=== PATIENT | female | born 1945 | race Caucasian/White ===

== ENCOUNTER 2016-10-05 08:30 | Inpatient (IN) | payer MEDICARE ==
--- NOTE | ~2016-10-05 | DS ---
Discharge Summary [facility] [address] [place]. [address] NAME: RICH STALLINGS : 43 STATUS : DIS IN PAT#: [id number] AGE: 71 ADM/REG DATE : 10/05/16 MR#: [id number] REPORT SERV DATE: 10/10/16 DICTATED BY: MIKAEL LUONG DATE: 10/09/16 REPORT STATUS : Draft TRANSCRIBED BY: MODL DATE: 10/09/16 ADMISSION DATE: 10/05/2016 DISCHARGE DATE: 10/09/2016 DISCHARGE DIAGNOSES: 1. Spontaneous bacterial peritonitis with strep bacteremia. 2. Acute kidney injury, present on admission, resolved. 3. Poorly controlled insulin-dependent diabetes type 2 with morning hypoglycemic episodes. 4. Cirrhosis with ascites and esophageal varices. 5. Hypothyroidism. CONSULTS: None. PROCEDURES: A diagnostic paracentesis, which she was essentially negative. Peritoneal fluid culture was negative as well. The patient did have clinical and ascitic fluid criteria meeting spontaneous bacterial peritonitis. HOSPITAL COURSE: This is a 71-year-old lady with history of cirrhosis, ascites, and esophageal varices, who presented to the hospital with acute abdominal pain and sepsis. For details, please refer to H and P by Dr. Blanc dated 10/05/2016. In summary, the patient had a diagnostic paracentesis done with the results being consistent with a spontaneous bacterial peritonitis, although eventually the fluid culture was negative. The patient by the second day was found to have a strep bacteremia 2/2. Unfortunately, the patient was immediately started on Rocephin, and she responded to IV Rocephin therapy really well. By the second day, the patient showed much improvement of her symptoms as well as resolution of her leukocytosis. Given the strep bacteremia and spontaneous bacterial peritonitis, the patient was maintained on IV Rocephin for five days prior to being discharged on p.o. Levaquin. The patient did have episodes of mild hypoglycemia throughout the hospital stay, especially in the mornings, however, other than that, the patient has remained stable with no additional complications. The acute kidney injury had resolved with gentle IV fluid administration. After 5 days of IV antibiotics, the patient is now being discharged home with p.o. Levaquin to finish at least a 14-day course altogether. The patient did wish to get a second opinion from a special investigator for better management of her ascites as well as being considered for transplantation in the future. Referral was made to Dr. Whitten for patient to follow up as an outpatient, but I do not see an acute reason for a Hepatology consultation here in the hospital. The patient's ascites has been stable as it has been for the past two years. DISCHARGE MEDICATIONS: 1. Levaquin for 9 additional days. 2. The patient's Lasix was increased from 40 mg p.o. daily to 40 mg p.o. b.i.d., otherwise no changes. I noted that the patient was not able to take Aldactone along with the Lasix. DISPOSITION: Home. Discharge Summary [address] [place]. [address] NAME: RICH STALLINGS : 43 STATUS : DIS IN PAT#: [id number] AGE: 71 ADM/REG DATE : 10/05/16 MR#: [id number] REPORT SERV DATE: 10/10/16 DICTATED BY: MIKAEL LUONG DATE: 10/09/16 REPORT STATUS : Draft TRANSCRIBED BY: DESTINY DATE: 10/09/16 FOLLOWUP: 1. Please follow up with PCP in the next one to two weeks. 2. Please follow up with Dr. Whitten in the next two to four weeks. A total of 35 minutes spent in coordinating this patient's discharge today. RASHAAD/DESTINY Mikael Luong MD / [id number] CC: Mikael Luong MD
--- NOTE | ~2016-10-05 | HP ---
History And Physical [place] [place] [id number] [place]. [address] NAME: RICH STALLINGS : 43 STATUS : ADM Jorge PAT#: [id number] AGE: 71 ADM/REG DATE : 10/05/16 MR#: [id number] REPORT SERV DATE: 10/05/16 DICTATED BY: PREET MACDONALD DATE: 10/05/16 REPORT STATUS : Draft TRANSCRIBED BY: MODL DATE: 10/05/16 DATE OF ADMISSION: 10/05/2016 CHIEF COMPLAINT: Abdominal pain. HISTORY OF PRESENT ILLNESS: The patient is a very unfortunate 71-year-old white female who suffers from cirrhosis of the liver, likely secondary to nonalcoholic steatohepatitis. I have seen her in the past. She has complications related to her cirrhosis such as pancytopenia, esophageal varices, ascites. She had varices banded back on, she states, last April as more of a prophylactic measure. She has had several banding procedures done. She states she was in her usual state of health until about three weeks ago when she developed diffuse abdominal pain. She states it hurts most of the time. She has diminished appetite, has not been drinking or eating, has not had any documented fevers but does feel cold. She has not had any chills. She presented to an outside hospital ER but was treated for a cough. She states her cough is not significant. She has not had any sputum. She is not short of breath. It hurts when she coughs in her belly but most of her complaints revolve around her abdomen. She has never had a paracentesis before. She does not require removal of ascites on a regular basis. She is no longer on transplant list. She denies any blood in her stool. She does have some bright red blood on the toilet paper but her anus area is very irritated from wiping and she states she has had some recent diarrhea. She has not vomited, has not had any recent hematemesis, has not noticed any change in her stool color. The abdominal pain she has is pretty significant to the point where she has been unable to perform her activities of daily life. She is currently living with her daughter. PAST MEDICAL HISTORY: 1. Cirrhosis. 2. Nonalcoholic steatohepatitis. 3. Pancytopenia. 4. Ascites. 5. Esophageal varices. 6. Hypoalbuminemia. 7. Diabetes mellitus. 8. Hypothyroidism. 9. Chronic kidney disease. SOCIAL HISTORY: She quit smoking 30+ years ago. Does not use alcohol. She works in the cleaning business. She is still gainfully employed. ALLERGIES: HYDROCODONE AND DOXYCYCLINE. FAMILY HISTORY: Her father had CAD at 73. Her mother at 89 from a stroke. She has a brother who of cirrhosis and her sister who had stomach cancer. SURGICAL HISTORY: She has had a cholecystectomy and a . HOME MEDICATIONS: Reviewed and attached. History And Physical [address] [address] NAME: RICH STALLINGS : 43 STATUS : ADM Jorge PAT#: [id number] AGE: 71 ADM/REG DATE : 10/05/16 MR#: [id number] REPORT SERV DATE: 10/05/16 DICTATED BY: PREET MACDONALD DATE: 10/05/16 REPORT STATUS : Draft TRANSCRIBED BY: DESTINY DATE: 10/05/16 REVIEW OF SYSTEMS: Full 10-point review of systems obtained. Pertinent positives already mentioned in the HPI. PHYSICAL EXAMINATION: CURRENT VITAL SIGNS: BP 179/77, temperature 98.2, pulse 100, sats 97%. Currently, her blood pressure is 155/74. Her pulse is in the low 100s currently. GENERAL: Pale-appearing white female. HEENT: Normocephalic, atraumatic. Throat is clear. NECK: Supple. HEART: Regular rate and rhythm. LUNGS: Grossly clear. ABDOMEN: Soft and mildly distended. Her bowel sounds are diminished. She has tenderness in all 4 quadrants but no rebound or guarding and no peritoneal signs. EXTREMITIES: Warm and dry. She has no significant peripheral edema. She has 2+ pulses at the feet. SKIN: Intact. LABORATORY AND X-RAY: Sodium 132, potassium 3.6, chloride 95, CO2 of 27. BUN and creatinine 34 and 1.63. Glucose is 445, albumin is 2.6, alk phos is 151, lipase is 59, ALT is 16, AST is 11. White count is 14.7, H and H are 12 and 35, platelet count is 69. Coags are pending. Urinalysis shows no whites. Chest x-ray is clear. CT of the abdomen and pelvis show thickened appearing loops of proximal and mid jejunum which may be nonspecific enteritis or hypoproteinemia. No bowel obstruction is noted. She had moderate to large volume ascites throughout the abdomen and pelvis. She had a cirrhotic liver and splenomegaly compatible with portal hypertension. She has an umbilical hernia. Cholecystectomy is noted and she has atherosclerotic calcification of the coronaries and a right renal cyst. ASSESSMENT/PLAN: 1. Abdominal pain. Certainly, first and foremost is to rule out spontaneous bacterial peritonitis given that she has cirrhosis and ongoing ascites. Certainly history sounds somewhat consistent with this. Would recommend that she undergo ultrasound-guided paracentesis with cell count culture, protein, albumin, etc. We will further evaluate her fluid studies and determine if she truly has SBP. In the meantime, we will cover with cefotaxime 2 g IV q.8 hours. Since she does have significant ascites and there is a chance of SBP and renal functions recently worsened, would also recommend giving her albumin today and on day 3, this was reviewed in the literature. We will go ahead and write for that. We will follow her studies, cover with antibiotics overnight. Certainly, did consider infectious origin such as C. diff since she has some diarrhea, so I will send off for C. diff of her stool. Her thickened loops of bowel looked like they were from hypoalbuminemia on her CT. We will pursue this further if she does not improve with the above measures. 2. Acute kidney injury. Her creatinine has doubled since I last saw her in 02/2015. I am going to give her some albumin and fluids, hold her Lasix overnight. She is going to get a paracentesis. We will need to watch her kidney function closely. Hopefully, she is not developing some type of hepatorenal syndrome. Urine studies look clean. She History And Physical [address] [address] NAME: RICH STALLINGS : 43 STATUS : ADM Jorge PAT#: [id number] AGE: 71 ADM/REG DATE : 10/05/16 MR#: [id number] REPORT SERV DATE: 10/05/16 DICTATED BY: PREET MACDONALD DATE: 10/05/16 REPORT STATUS : Draft TRANSCRIBED BY: MODL DATE: 10/05/16 may also have a component of volume depletion secondary to the fact that she has not been eating or drinking. She has not been taking her insulin and her glucose is 445. 3. Poorly-controlled diabetes mellitus, glucose of 445. We would recommend giving her 20 of Lantus now, 8 units NovoLog and level 2 sliding scale along with continued Levemir. We will see how her sugar does and go from there. 4. History of hypothyroidism. Continue Synthroid. 5. History of esophageal varices with history of banding procedure done. No active bleeding today. 6. Raw appearance to the skin around the rectum. We will recommend local care by the nurses. 7. Deep vein thrombosis prophylaxis. We will hold off given her history of bleeding in the past and her coags are pending. 8. Disposition. Pending above aforementioned plan and workup. 9. Long-term prognosis discussed with patient whether or not she wants to visit considering transplantation. 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 NICO/DESTINY Preet Macdonald M.D. / [id number]
[~2016-10-05 08:30] MED LIST: CYANO1000T PO; DRISDOL50000 UNT PO; INNOPRAN XL80 MG PO; L40 PO; LANTUS SC; LEVOTHYROXIN175 MCG PO; SLOW FE160 MG PO; TONIC WATER PO; URSO FORTE500 MG PO
[2016-10-05 08:49] LABS: BASOPHILS 0.1 %; BASOPHILS ABSOLUTE 0.01 10/3/uL (0.0-0.16); EOSINOPHILS 0.1 %; EOSINOPHILS ABSOLUTE 0.01 10/3/uL (0.0-0.53); HEMATOCRIT 35.5 % (36.0-48.0); HEMOGLOBIN 12.2 g/dL (12.0-16.0); IMMATURE GRANULOCYTES 0.5 %; LYMPHOCYTES 2.6 %; LYMPHOCYTES ABSOLUTE 0.38 10/3/uL (0.67-4.30); MEAN CORPUS HGB CONC 34.4 g/dL (32.0-36.0); MEAN CORPUSCULAR HEMOGLOB 31.4 pg (26.0-34.0); MEAN CORPUSCULAR VOLUME 91.5 fL (80-100); MEAN PLATELET VOLUME 10.7 fL (9.2-13.0); MONOCYTES 3.8 %; MONOCYTES ABSOLUTE 0.56 10/3/uL (0.21-1.20); NEUTROPHILS 92.9 %; NEUTROPHILS ABSOLUTE 13.61 10/3/uL (2.02-8.40); PLATELET COUNT 69 10/3/uL (150-400); RBC DISTRIBUTION WIDTH 13.3 % (12.0-16.0); RED CELL COUNT 3.88 10/6/uL (4.0-5.6); WHITE BLOOD CELLS 14.7 10/3/uL (4.5-10.5)
[2016-10-05 08:50] LABS: IMMATURE GRANULOCYTES ABSOLUTE 0.08 10/3/uL (0.0-0.11); MANUAL DIFF NO %
[2016-10-05 08:59] LABS: ASCORBIC ACID (UR NOT ORDER) NEG (NEG); BILIRUBIN, URINE NEGATIVE (NEG); ER URINALYSIS TAT 0 Hrs 16 Mins; KETONE, URINE TRACE MG/DL (NEG); LEUKOCYTE ESTERASE(NOT OR NEG (NEG); NITRITE (URINE) NEG (NEG); WBC (NOT ORDERED) (RFLEX) 3 (0-5)
[2016-10-05 09:08] LABS: A/G RATIO 0.5 (0.7-1.9); ALBUMIN 2.6 G/DL (3.5-5.0); ALKALINE PHOSPHATASE 151 U/L (45-117); BUN (BLOOD UREA NITROGEN) 34 MG/DL (6-23); CALCIUM, SERUM 8.7 MG/DL (8.5-10.4); CHLORIDE, SERUM 95 MMOL/L (96-112); CO2 (CARBON DIOXIDE) 27 MMOL/L (24-34); CREATININE 1.63 MG/DL (0.55-1.02); DIRECT BILIRUBIN 0.4 MG/DL (0.0-0.4); GFR AFRICAN AMERICAN 36 ML/MIN (>=60); GFR NON AFRICAN AMERICAN 31 ML/MIN (>=60); GLOBULIN 5.3 G/DL (2.5-4.1); GLUCOSE, SERUM 445 MG/DL (60-99); INDIRECT BILIRUBIN(NOT ORDER) 0.7 MG/DL (0.1-0.9); POTASSIUM, SERUM 3.6 MMOL/L (3.5-5.3); SGOT(AST) 11 U/L (5-40); SGPT(ALT) 16 U/L (5-65); SODIUM, SERUM 132 MMOL/L (135-148); TOTAL BILIRUBIN 1.1 MG/DL (0-1.2); TOTAL PROTEIN 7.9 G/DL (6.0-8.5)
[2016-10-05 09:25] LABS: BAND NEUTROPHILS 11 %; ER DIFF TAT 0 Hrs 42 Mins; LYMPHOCYTES 3 %; LYMPHOCYTES ABSOLUTE (CALC) 0.44 10/3/uL (0.67-4.30); MONOCYTES 6 %; MONOCYTES ABSOLUTE (CALC) 0.88 10/3/uL (0.21-1.20); NEUTROPHILS ABSOLUTE (CALC) 13.38 10/3/uL (2.02-8.40); PLATELET ESTIMATE DEC (ADEQUATE); RBC MORPHOLOGY NORM (NORMAL); SEGMENTED NEUTROPHIL (0) 80 %; TOTAL NUCLEATED CELLS 100
[2016-10-05] MEDS ORDERED: LEVOTHYROXIN175 MCG PO (10:27)
[2016-10-05] MEDS ORDERED: ACT300 PO (10:27)
[2016-10-05] MEDS ORDERED: ZYRTEC ALLGY10 MG PO (10:27)
[2016-10-05] MEDS ORDERED: INDE80LA PO (10:27)
[2016-10-05] MEDS ORDERED: ZANTAC150 MG PO (10:28)
[2016-10-05] MEDS ORDERED: L40 PO (10:28)
[2016-10-05] MEDS ORDERED: PRILOSEC40 MG PO (10:28)
[2016-10-05] MEDS ORDERED: SLOW-FE PO (10:30)
[2016-10-05] MEDS ORDERED: VITAMIN B-122500 MCG SL (10:31)
[2016-10-05] MEDS ORDERED: VITD PO (10:31)
[2016-10-05] MEDS ORDERED: FLEX PO (10:32)
[2016-10-05] MEDS ORDERED: TESS PO (10:32)
[2016-10-05] MEDS ORDERED: LANTUS SC (10:38)
[2016-10-05 11:46] LABS: INTERNATIONAL NORMAL RATI 1.5 UNITS (-); PROTIME (NOT ORD) 17.7 SEC (12.0-14.5)
[2016-10-05 11:47] LABS: PARTIAL THROMBO TIME 27.1 SEC (22.5-37.2)
[2016-10-05 11:50] LABS: LACTATE 1.9 MMOL/L (0.3-2.4)
[2016-10-05 16:43] LABS: BF ALBUMIN 0.7 G/DL; GLUCOSE BODY FL (NOT ORD) 424 MG/DL; LDH BODY FLUID (NOT ORD) 46 U/L; PROTEIN BODY FLUID 1.9 G/DL
[2016-10-05 16:57] LABS: BF TOTAL CELL CT (NOT ORD 811 /MM3; BODY FLUID RBC (NOT ORD) 3802 /MM3
[2016-10-05 19:38] LABS: BD FL LYMPH (NOT ORD) 14 %; BF BASO (NOT OF) 0 %; BF LARGE MONONUCLEAR 34 %; BODY FLUID EOS (NOT ORD) 0 %; BODY FLUID SEG (NOT ORD) 52 %
[2016-10-05 19:39] LABS: BD FL SOURCE (NOT ORD) PARACENTESIS
[2016-10-05 20:20] LABS: BD FL SOURCE (NOT ORD) PARACENTESIS
[2016-10-06 05:54] LABS: BASOPHILS 0 %; EOSINOPHILS 2.8 %; EOSINOPHILS ABSOLUTE 0.17 10/3/uL (0.0-0.53); IMMATURE GRANULOCYTES 0.2 %; IMMATURE GRANULOCYTES ABSOLUTE 0.01 10/3/uL (0.0-0.11); LYMPHOCYTES ABSOLUTE 0.61 10/3/uL (0.67-4.30); MEAN CORPUS HGB CONC 33.6 g/dL (32.0-36.0); MEAN CORPUSCULAR HEMOGLOB 30.7 pg (26.0-34.0); MEAN CORPUSCULAR VOLUME 91.6 fL (80-100); MEAN PLATELET VOLUME 11.2 fL (9.2-13.0); MONOCYTES 5.4 %; MONOCYTES ABSOLUTE 0.33 10/3/uL (0.21-1.20); NEUTROPHILS 81.6 %; NEUTROPHILS ABSOLUTE 4.99 10/3/uL (2.02-8.40); PLATELET COUNT 57 10/3/uL (150-400); RBC DISTRIBUTION WIDTH 13.5 % (12.0-16.0)
[2016-10-06 06:02] LABS: INTERNATIONAL NORMAL RATI 1.6 UNITS (-); PARTIAL THROMBO TIME 33.2 SEC (22.5-37.2); PROTIME (NOT ORD) 18.8 SEC (12.0-14.5)
[2016-10-06 06:03] LABS: WHITE BLOOD CELLS 6.1 10/3/uL (4.5-10.5)
[2016-10-06 06:04] LABS: HEMATOCRIT 27.1 % (36.0-48.0); HEMOGLOBIN 9.1 g/dL (12.0-16.0); MANUAL DIFF NO %; RED CELL COUNT 2.96 10/6/uL (4.0-5.6)
[2016-10-06 06:13] LABS: CALCIUM, SERUM 8.2 MG/DL (8.5-10.4); CHLORIDE, SERUM 102 MMOL/L (96-112); CO2 (CARBON DIOXIDE) 28 MMOL/L (24-34); CREATININE 1.35 MG/DL (0.55-1.02); GFR AFRICAN AMERICAN 45 ML/MIN (>=60); GFR NON AFRICAN AMERICAN 39 ML/MIN (>=60); POTASSIUM, SERUM 3.1 MMOL/L (3.5-5.3); SGOT(AST) 4 U/L (5-40); SGPT(ALT) 13 U/L (5-65); SODIUM, SERUM 138 MMOL/L (135-148); TOTAL PROTEIN 6.7 G/DL (6.0-8.5)
[2016-10-06 06:14] LABS: ALBUMIN 3.3 G/DL (3.5-5.0); ALKALINE PHOSPHATASE 95 U/L (45-117); BUN (BLOOD UREA NITROGEN) 39 MG/DL (6-23); GLOBULIN 3.4 G/DL (2.5-4.1); GLUCOSE, SERUM 193 MG/DL (60-99); TOTAL BILIRUBIN 0.6 MG/DL (0-1.2)
[2016-10-06 06:49] LABS: PLATELET ESTIMATE DEC (ADEQUATE)
[2016-10-06 06:50] LABS: POLYCHROMASIA 1+ (2-5/OIF) (0-1/OIF)
[2016-10-07 06:52] LABS: BASOPHILS 0 %; EOSINOPHILS 1.7 %; IMMATURE GRANULOCYTES 0.5 %; IMMATURE GRANULOCYTES ABSOLUTE 0.03 10/3/uL (0.0-0.11); LYMPHOCYTES 8.6 %; LYMPHOCYTES ABSOLUTE 0.51 10/3/uL (0.67-4.30); MEAN CORPUS HGB CONC 34.2 g/dL (32.0-36.0); MEAN CORPUSCULAR HEMOGLOB 31.2 pg (26.0-34.0); MEAN CORPUSCULAR VOLUME 91.1 fL (80-100); MONOCYTES 5.6 %; MONOCYTES ABSOLUTE 0.33 10/3/uL (0.21-1.20); NEUTROPHILS 83.6 %; NEUTROPHILS ABSOLUTE 4.93 10/3/uL (2.02-8.40); RBC DISTRIBUTION WIDTH 13.3 % (12.0-16.0); WHITE BLOOD CELLS 5.9 10/3/uL (4.5-10.5)
[2016-10-07 06:57] LABS: BUN (BLOOD UREA NITROGEN) 37 MG/DL (6-23); CALCIUM, SERUM 8.1 MG/DL (8.5-10.4); CHLORIDE, SERUM 105 MMOL/L (96-112); CO2 (CARBON DIOXIDE) 26 MMOL/L (24-34); CREATININE 1.19 MG/DL (0.55-1.02); GFR AFRICAN AMERICAN 53 ML/MIN (>=60); GFR NON AFRICAN AMERICAN 46 ML/MIN (>=60); SODIUM, SERUM 141 MMOL/L (135-148)
[2016-10-07 06:59] LABS: HEMATOCRIT 33.6 % (36.0-48.0); HEMOGLOBIN 11.5 g/dL (12.0-16.0); RED CELL COUNT 3.69 10/6/uL (4.0-5.6)
[2016-10-07 07:00] LABS: MANUAL DIFF NO %; PLATELET COUNT 85 10/3/uL (150-400)
[2016-10-07 07:02] LABS: GLUCOSE, SERUM 143 MG/DL (60-99); POTASSIUM, SERUM 4.3 MMOL/L (3.5-5.3)
[2016-10-07 07:38] LABS: PROCALCITONIN 0.53 ng/mL (<0.5)
[2016-10-08 08:40] LABS: BASOPHILS 0.4 %; BASOPHILS ABSOLUTE 0.02 10/3/uL (0.0-0.16); EOSINOPHILS 2.9 %; EOSINOPHILS ABSOLUTE 0.13 10/3/uL (0.0-0.53); HEMOGLOBIN 11.1 g/dL (12.0-16.0); IMMATURE GRANULOCYTES 0.4 %; IMMATURE GRANULOCYTES ABSOLUTE 0.02 10/3/uL (0.0-0.11); LYMPHOCYTES 18.3 %; LYMPHOCYTES ABSOLUTE 0.82 10/3/uL (0.67-4.30); MEAN CORPUS HGB CONC 33.6 g/dL (32.0-36.0); MEAN CORPUSCULAR HEMOGLOB 30.8 pg (26.0-34.0); MEAN CORPUSCULAR VOLUME 91.7 fL (80-100); MEAN PLATELET VOLUME 10.9 fL (9.2-13.0); MONOCYTES 4.5 %; NEUTROPHILS 73.5 %; NEUTROPHILS ABSOLUTE 3.29 10/3/uL (2.02-8.40); PLATELET COUNT 79 10/3/uL (150-400); RBC DISTRIBUTION WIDTH 13.7 % (12.0-16.0); WHITE BLOOD CELLS 4.5 10/3/uL (4.5-10.5)
[2016-10-08 08:41] LABS: MANUAL DIFF NO %
[2016-10-08 08:49] LABS: CALCIUM, SERUM 8.8 MG/DL (8.5-10.4); CHLORIDE, SERUM 104 MMOL/L (96-112); CO2 (CARBON DIOXIDE) 27 MMOL/L (24-34); CREATININE 1.11 MG/DL (0.55-1.02); GFR AFRICAN AMERICAN 57 ML/MIN (>=60); GFR NON AFRICAN AMERICAN 50 ML/MIN (>=60); SODIUM, SERUM 138 MMOL/L (135-148)
[2016-10-08 08:50] LABS: BUN (BLOOD UREA NITROGEN) 32 MG/DL (6-23); GLUCOSE, SERUM 237 MG/DL (60-99)
[2016-10-08 09:15] LABS: PLATELET ESTIMATE DEC (ADEQUATE)
[2016-10-08 09:16] LABS: RBC MORPHOLOGY NORM (NORMAL)
[2016-10-09] MEDS ORDERED: DSS PO (10:40)
[2016-10-09] MEDS ORDERED: LEVAQUIN750 MG PO (10:42)
[2016-10-09] MEDS ORDERED: OXYCOD PO (10:44)
[2016-12-20] MEDS ORDERED: CALTRA600D PO (12:13)
[2016-12-20] MEDS ORDERED: VITAMIN D2000 UNIT PO (12:13)
[2017-01-12] MEDS ORDERED: CALTRAT600 PO (09:49)
[2017-01-12] MEDS ORDERED: VITAMIN B-121000 MC1 PO (09:54)
[2017-01-12] MEDS ORDERED: LEVOTHYROXIN175 MCG PO (09:56)
[2017-01-12] MEDS ORDERED: PRILO PO (09:57)
[2017-01-12] MEDS ORDERED: IRON PO (10:02)
[2017-01-12] MEDS ORDERED: VITAMIN D31000 UNIT PO (10:03)
[2017-01-12] MEDS ORDERED: CIP2 PO (15:08)
[2017-01-12] MEDS ORDERED: SPIRO25 PO (15:08)
[2017-03-14] MEDS ORDERED: HUMALOGPEN SC (12:56)
== END 2016-10-09 11:42 | disposition home or self-care (01) | DRG 372 ==
LOC: ER 08:30 → SSU1 11:46 → SDC/OF 12:56 → ER/OF 12:58 → 4SO 13:23
PROVIDERS: Internal Medicine; Nurse Practitioner
PROC: 0W9G3ZX Drainage of Peritoneal Cavity, Percutaneous Approach, Diagnostic (ICD-10-PCS; principal; 2016-10-05)
DX: K65.2 Spontaneous bacterial peritonitis (principal); N17.9 Acute kidney failure, unspecified; R78.81 Bacteremia; I85.10 Secondary esophageal varices without bleeding; K76.6 Portal hypertension; E11.649 Type 2 diabetes mellitus with hypoglycemia without coma; E11.65 Type 2 diabetes mellitus with hyperglycemia; K74.60 Unspecified cirrhosis of liver; K75.81 Nonalcoholic steatohepatitis (NASH); K74.69 Other cirrhosis of liver; E03.9 Hypothyroidism, unspecified; Z87.891 Personal history of nicotine dependence; K62.9 Disease of anus and rectum, unspecified; N18.9 Chronic kidney disease, unspecified; E11.22 Type 2 diabetes mellitus with diabetic chronic kidney disease; E86.9 Volume depletion, unspecified; B95.4 Other streptococcus as the cause of diseases classified elsewhere; E86.0 Dehydration
CPT/HCPCS: 49083; 71010; 74176; 80048; 80053; 81001; 82042; 82248; 82945; 82962; 83605; 83615; 83690; 84145; 84157; 85025; 85610; 85730; 87040; 87070; 87077; 87150; 87186; 87205; 89051; 93005; 96374; 96375; 99285; A9270-GY; J1170; J2405; J3411; P9047